=== PATIENT | male | born 1985 | race Caucasian/White ===

== ENCOUNTER 2023-11-24 12:13 | Emergency (ER) | payer OTHER ==
[~2023-11-24] VITALS: Ht 175.3 cm; Wt 68.0 kg
[2023-11-24] MEDS ORDERED: Ketorolac Tromethamine 15mg Vial IM ONE (12:45)
[2023-11-24] MEDS ORDERED: SULTRIDS PO (12:47)
[2023-11-24] MEDS ORDERED: CEPH500 PO (13:03)
== END 2023-11-24 13:40 | disposition home or self-care (01) ==
LOC: ER 12:13
DX: L03.114 Cellulitis of left upper limb (principal)
CPT/HCPCS: 96372; 99282-25; J1885

== ENCOUNTER 2024-10-31 21:12 | Emergency (ER) | payer OTHER ==
[~2024-10-31] VITALS: Ht 175.3 cm; Wt 72.6 kg
[~2024-10-31 21:12] MED LIST: CEPH500 PO; SULTRIDS PO
== END 2024-10-31 21:45 | disposition home or self-care (01) ==
LOC: ER 21:12
DX: J02.9 Acute pharyngitis, unspecified (principal); Z79.2 Long term (current) use of antibiotics
CPT/HCPCS: 87081; 87430; 99282